=== PATIENT | female | born 1990 | race African-American/Black ===

== ENCOUNTER 2023-03-22 17:22 | Emergency (ER) | payer MEDICAID, OTHER ==
[~2023-03-22] VITALS: Ht 157.5 cm; Wt 113.0 kg
[2023-03-22] MEDS ORDERED: LIDOCAINE 1% (LOCAL ANESTH.) PF 5ml SDV ID ONE (19:15)
[2023-03-22 19:16] LABS: Urine Bacteria FEW /hpf (None Seen); Urine Blood TRACE /uL (Negative); Urine Clarity HAZY (Clear); Urine Color Yellow (Yellow); Urine Mucus FEW (None Seen); Urine Protein, UAD TRACE (Negative); Urine Specific Gravity 1.032 (1.001-1.035); Urine Urobilinogen Normal (Negative); Urine WBC 13 /hpf (0 - 5)
[2023-03-22 19:39] LABS: Barbiturate Scree,Urine NEGATIVE (NEGATIVE); Benzodiazephine Screen, Urine NEGATIVE (NEGATIVE); Cannabinoid Screen, Urine NEGATIVE (NEGATIVE); Cocaine Screen, Urine NEGATIVE (NEGATIVE)
[2023-03-22 19:42] LABS: Alcohol, Urine < 3.0 mg/dL (0-10); Amphetamine Screen, Urine NEGATIVE (NEGATIVE); Opiate Scree,Urine NEGATIVE (NEGATIVE); Phencyclidine Screen, Urine NEGATIVE (NEGATIVE)
[2023-03-22] MEDS ORDERED: LIDOCAINE 1% HCL (LOCAL ANESTH.) INJ 20ML MDV ONE (20:39)
[2023-03-22] MEDS ORDERED: NEOMYCIN-BACITRACIN-POLYM 15GM TOP OINT TOP ONE (21:15)
[2023-03-22 22:46] VITALS: BP 127/76; PULSE 70; RESP 17; TEMP 98.2; O2SAT 100
== END 2023-03-22 22:51 | disposition home or self-care (01) ==
LOC: ER 17:22
DX: S51.811A Laceration without foreign body of right forearm, initial encounter (principal); F32.9 Major depressive disorder, single episode, unspecified; Z79.899 Other long term (current) drug therapy; Z32.02 Encounter for pregnancy test, result negative; X78.8XXA Intentional self-harm by other sharp object, initial encounter; Y93.89 Activity, other specified; Y92.89 Other specified places as the place of occurrence of the external cause; Y99.8 Other external cause status
CPT/HCPCS: 12002; 36415; 80307; 80320; 81001; 81025; 99283; J2001

== ENCOUNTER 2023-12-15 10:41 | Emergency (ER) | payer MEDICAID ==
[~2023-12-15] VITALS: Ht 157.5 cm; Wt 103.4 kg
[~2023-12-15 10:41] MED LIST: AZIT500T66 PO; PRED20TA2 PO; PROM1SOL4 PO
[2023-12-15 12:06] VITALS: BP 141/93; PULSE 80; RESP 18; TEMP 98.6; O2SAT 100
== END 2023-12-15 12:09 | disposition home or self-care (01) ==
LOC: ER 10:41
DX: J06.9 Acute upper respiratory infection, unspecified (principal); R07.89 Other chest pain; Z79.2 Long term (current) use of antibiotics; Z79.899 Other long term (current) drug therapy
CPT/HCPCS: 71045

== ENCOUNTER 2024-05-22 04:17 | Emergency (ER) | payer MEDICAID ==
[~2024-05-22] VITALS: Ht 160 cm; Wt 82.0 kg
[2024-05-22] MEDS: IPRATROPIUM BROM 0.5 MG/2.5ML INH SOL NEB ONE (04:56)
[2024-05-22] MEDS: ALBUTEROL SULF 2.5 MG/0.5ML(0.5%) NEB SOLN NEB ONE (04:56)
[2024-05-22 05:03] VITALS: BP 144/97; PULSE 102; RESP 16; TEMP 98.1; O2SAT 99
[2024-05-22] MEDS: methylPREDNISolone SOD SUCC 125 MG/2 ML VL IM ONE (05:32)
[2024-05-22] MEDS ORDERED: BENZ100C97 PO (05:33)
[2024-05-22] MEDS ORDERED: FLUT250M2 INH (05:33)
[2024-05-22] MEDS: AZITHROMYCIN 250 MG TAB PO ONE (05:33)
[2024-05-22] MEDS ORDERED: ALBUAER3 IN (05:33)
[2024-05-22] MEDS ORDERED: AZIT500T66 PO (05:33)
[2024-05-22 05:58] LABS: COVID19 ANTIGEN SOFIA FIA NEGATIVE (NEGATIVE); Rapid Influenza A Negative (Negative); Rapid Influenza B Negative (Negative)
== END 2024-05-22 06:05 | disposition home or self-care (01) ==
LOC: ER 04:17 → EDBD 04:17 → ER 06:04
DX: J20.9 Acute bronchitis, unspecified (principal); Z20.822 Contact with and (suspected) exposure to COVID-19
CPT/HCPCS: 36415; 71046; 87426; 87804; 94640; 96372; 99284; J2919

== ENCOUNTER 2024-06-07 18:08 | Emergency (ER) | payer MEDICAID ==
[~2024-06-07] VITALS: Ht 157.5 cm; Wt 90.0 kg
[~2024-06-07 18:08] MED LIST changes: +ALBUAER3 IN; +BENZ100C97 PO
[2024-06-07 18:29] VITALS: RESP 18
[2024-06-07 19:37] LABS: Basophils # (auto) 0.1 10 ^3/uL (0-0.2); Eosinophils # (auto) 0 10 ^3/uL (0-0.8); Eosinophils % (auto) 0.1 % (0.0-7.0); Hematocrit 36.4 % (36.0-46.0); Hemoglobin 11.8 g/dL (12.2-16.2); Lymphocytes # (auto) 1.3 10 ^3/uL (0.4-5.4); Lymphocytes % (auto) 20.1 % (10.0-50.0); Mean Corpuscular Hemoglobin 25.6 pg (28.0-32.0); Mean Corpuscular Hgb Conc. 32.4 g/dL (32.0-36.0); Mean Corpuscular Volume 78.9 fL (80.0-100.0); Monocytes # (auto) 0.4 10 ^3/uL (0-1.3); Monocytes % (auto) 6.2 % (0.0-12.0); Neutrophils # (auto) 4.6 10 ^3/uL (1.6-8.6); Neutrophils % (auto) 72.6 % (37.0-80.0); Platelet Count (auto) 332 10^3/uL (140-450); Red Blood Cells 4.61 10^6/uL (4.0-5.20); Red Cell Distribution Width 15.9 % (11.8-14.3); White Blood Cell 6.3 10^3/uL (4.4-10.8)
[2024-06-07 19:47] LABS: Alanine Aminotransferase 21 U/L (7-40); Albumin 4.6 g/dL (3.2-4.8); Alkaline Phosphatase 80 U/L (46-116); Anion Gap 7 (5-15); Aspartate Aminotransferase 18 U/L (13-40); BUN/Creatinine Ratio 7.5 (10.0-20.0); Blood Urea Nitrogen 6 mg/dL (9-23); Calcium 9.2 mg/dL (8.7-10.4); Carbon Dioxide 27 mmol/L (20-31); Chloride 106 mmol/L (98-107); Glucose 90 mg/dL (74-106); Lipase 29 U/L (12-53); Potassium 3.7 mmol/L (3.5-5.1); Sodium 140 mmol/L (136-145)
[2024-06-07 19:48] LABS: Bilirubin, Total 0.5 mg/dL (0.2-1.0); Total Protein 7.8 g/dL (5.7-8.2)
[2024-06-07 20:17] LABS: Urine Bacteria None Seen /hpf (None Seen)
[2024-06-07 20:34] LABS: Urine Blood 2+ /uL (Negative); Urine Clarity Clear (Clear); Urine Color Light-Yellow (Yellow); Urine Mucus FEW (None Seen); Urine Protein, UAD TRACE (Negative); Urine Squamous Epithelial Cell FEW /hpf (<5); Urine Urobilinogen Normal (Negative); Urine WBC 2 /hpf (0 - 5)
[2024-06-07 20:41] LABS: Amphetamine Screen, Urine Neg (NEGATIVE); Barbiturate Scree,Urine Neg (NEGATIVE); Benzodiazephine Screen, Urine Neg (NEGATIVE); Cannabinoid Screen, Urine Neg (NEGATIVE); Cocaine Screen, Urine Neg (NEGATIVE); Opiate Scree,Urine Neg (NEGATIVE); Phencyclidine Screen, Urine Neg (NEGATIVE)
--- NOTE | 2024-06-07 21:34 | DVH ---
Exam: CT CT AB PEL WO CON-NO ORAL OR IV History: ABD PAIN Comparison Study: None TECHNIQUE: Multidetector CT of the abdomen and pelvis was performed from lung bases to pubic symphysi s. Imaging was performed without IV contrast. Axial, coronal, and sagittal multiplanar reformats were obtained from the axial data set by the technologist. RADIATION DOSE: DLP 1130.1 mGy.cm; CTDI vol 21.29 mGy. Findings: Lungs: The lung bases are clear. Heart: The visualized heart is unremarkable. No cardiomegaly or pericardial effusion. Liver: Unremarkable. Gallbladder: Unremarkable. Spleen: Unremarkable Pancreas: Unremarkable Adrenals: Unremarkable Kidneys: Unremarkable GI tract: Mild diffuse jejunal wall thickening. : Unremarkable. Vasculature: Unremarkable Lymphadenopathy: Absent Peritoneum: No ascites Musculoskeletal: Unremarkable Soft tissues: Unremarkable Impression: 1. No acute abdominopelvic abnormalities. 2. Mild diffuse jejunal wall thickening. Correlate for an infectious/inflammatory enteritis.
[2024-06-07] MEDS ORDERED: ONDA-155 PO (22:42)
--- NOTE | 2024-06-07 22:42 | ED.PDOC ---
GI ASSESSMENT HPI Comments 33-YEAR-OLD FEMALE COMPLAINING OF NAUSEA AND VOMITING WHICH STARTED LAST NIGHT AFTER DRINKING A BUBBLE. STATES NAUSEA AND VOMITING STARTED WITHIN 30 MINUTES TO AN HOUR AFTER DRINKING. STATES SHE HAS BEEN HAVING VOMITING THROUGHOUT THE NIGHT INTO TODAY. STATES SHE FELT LIKE SHE WAS VOMITING UP BLOOD. TODAY SHE WAS STILL FEELS THOUGH SHE WAS VOMITING BLOOD. NO NEW MEDICATIONS. NO PRIOR STOMACH ISSUES. PATIENT STATES SHE WAS ALSO HAD DIARRHEA TODAY. NOTHING MAKES IT BETTER, NOTHING MAKES IT WORSE Chief Complaint: Nausea/Vomiting Time Seen by MD: 18:22 Primary Care Provider: NONE Reviewed Notes: Nurses Notes Allergies: Coded Allergies: No Known Drug Allergy (Verified Allergy, Unknown, 03/22/23) Home Meds Active Scripts Benzonatate (Benzonatate) 100 Mg Cap, 1-2 CAP PO Q4HR PRN for 10 Days, #30 CAP Prov:ROLAND YODER 05/22/24 Albuterol Sulfate (VENTOLIN MDI) 90 Mcg Ih, 90 MCG IN QID for 30 Days, #1 INH Prov:ROLAND YODER 05/22/24 Azithromycin (Azithromycin) 500 Mg Tab, 1 TAB PO DAILY for 5 Days, #5 TAB Prov:ROLAND YODER 05/22/24 Promethazine-Dm (Promethazine Dm 6.25-15 mg/5Ml) 1 Shyla Shyla, 10 ML PO TID, #180 ML Prov:VOLODYMYR LUCERO 10/01/23 Prednisone (Prednisone) 20 Mg Tab, 60 MG PO BS, #15 MG Prov:VOLODYMYR LUCERO 10/01/23 Azithromycin (Azithromycin) 500 Mg Tab, 1 TAB PO DAILY, #5 TAB Prov:VOLODYMYR LUCERO 10/01/23 Discontinued Scripts Fluticasone-Salmeterol (Advair Diskus 250/50) 1 Puff Ih, 1 PUFF INH BID for 14 Days, #1 INHALER Prov:ROLAND YODER 05/22/24 Information Source: Patient Mode of Arrival: EMS Past Medical History PAST MEDICAL HISTORY: Denies Surgical History: Denies all surgeries FOSTER PARENT History: Denies all FOSTER PARENT Hx Family History Family History: Reviewed,noncontributory to illness Social History Smoker: Non-Smoker Alcohol: Occasionally Drugs: Denies Drug Use Lives In: Home Constitutional: denies: chills, diaphoresis, fatigue, fever, malaise, sweats, weakness, others EENTM: denies: blurred vision, double vision, ear bleeding, ear discharge, ear drainage, ear pain, ear ringing, eye pain, eye redness, hearing loss, mouth pain, mouth swelling, nasal discharge, nose bleeding, nose congestion, nose pain, photophobia, tearing, throat pain, throat swelling, voice changes, others Respiratory: denies: cough, hemoptysis, orthopnea, SOB at rest, shortness of breath, SOB with excertion, stridor, wheezing, others Cardiovascular: denies: chest pain, dizzy spells, diaphoresis, Dyspnea on exertion, edema, irregular heart beat, left arm pain, lightheadedness, palpitations, PND, syncope, others Gastrointestinal: reports: abdominal pain, diarrhea, nausea, vomiting; denies: abdomen distended, blood streaked bowels, constipated, dysphagia, difficulty swallowing, hematemesis, melena, poor appetite, poor fluid intake, rectal bleeding, others Genitourinary: denies: abnormal vagina bleeding, burning, dyspareunia, dysuria, flank pain, frequency, hematuria, incontinence, pain, , vagina discharge, urgency, others Neurological: denies: dizziness, fainting, headache, left sided numbness, left sided weakness, numbness, paresthesia, pre-existing deficit, right sided numbness, right sided weakness, seizure, speech problems, tingling, tremors, weakness, others Musculoskeletal: denies: back pain, gout, joint pain, joint swelling, muscle pain, muscle stiffness, neck pain, others Integumetry: denies: bruises, change in color, change in hair/nails, dryness, laceration, lesions, lumps, rash, wounds, others Physical Exam General Appearance: No Apparent Distress, Normal HEENT: Normal ENT Inspection, Pharynx Normal, TMs Normal Neck: Full Range of Motion, Non-Tender, Normal, Normal Inspection Respiratory: Chest Non-Tender, Lungs Clear, No Accessory Muscle Use, No Respiratory Distress, Normal Breath Sounds Cardiovascular: No Edema, No JVD, No Murmur, No Gallop, Normal Peripheral Pulses, Regular Rate/Rhythm Breast Exam: Deferred Gastrointestinal: Diffuse (DIFFUSE ABDOMINAL TENDERNESS), No Organomegaly, Non Tender, No Pulsatile Mass, Normal Bowel Sounds, Soft Genitalia: Deferred Pelvic: Deferred Rectal: Deferred Extremities: No calf tenderness, Normal capillary refill, Normal inspection, Normal range of motion, Non-tender, No pedal edema Musculoskeletal : Apperance: Normal Neurologic: Alert, cnc laser operator II-XII nml as Tested, No Motor Deficits, Normal Affect, Normal Mood, No Sensory Deficits Cerebellar Function: Normal Reflexes: Normal Skin: Dry, Normal Color, Warm Lymphatic: No Adenopathy Was a procedure done? Was a procedure done?: No GI differential Dx Differential Diagnosis: Bowel Obstruction, Cholangitis, Cholecystitis, Gastritis/PUD, Gastroenteritis, GI hemorrhage X-Ray, Labs, Meds, VS Vital Signs Date Time Temp Pulse Resp B/P (MAP) Pulse Ox O2 Delivery O2 Flow Rate FiO2 06/07/24 19:03 98.3 96 16 100/62 (75) 97 06/07/24 18:29 18 Room Air* 0 21 Lab Test 06/07/24 20:16 06/07/24 18:33 Range/Units Urine Color Light-yellow Yellow Urine Clarity Clear Clear Urine pH 7.0 5.0-9.0 Urine Specific [place] 1.020 1.001-1.035 Urine Protein Trace H Negative Urine Ketones 1+ H Negative Urine Blood 2+ H Negative /uL Urine Nitrite Negative Negative Urine Bilirubin Negative Negative Urine Urobilinogen Normal Negative mg/dL Urine Leukocyte Esterase Negative Negative /uL Urine RBC 4 0 - 4 /hpf Urine WBC 2 0 - 5 /hpf Urine Squamous Epithelial Cells Few <5 /hpf Urine Bacteria None seen None Seen /hpf Urine Mucus Few None Seen Urine Glucose Normal Normal mg/dL Urine Test Negative Negative Urine Opiates Screen Neg NEGATIVE Urine Fentanyl Screen Neg NEGATIVE Urine Barbiturates Screen Neg NEGATIVE Urine Phencyclidine Screen Neg NEGATIVE Urine Amphetamines Screen Neg NEGATIVE Urine Benzodiazepines Screen Neg NEGATIVE Urine Cocaine Screen Neg NEGATIVE Urine Cannabinoids Screen Neg NEGATIVE White Blood Count 6.3 4.4-10.8 10^3/uL Red Blood Count 4.61 4.0-5.20 10^6/uL Hemoglobin 11.8 L 12.2-16.2 g/dL Hematocrit 36.4 36.0-46.0 % Mean Corpuscular Volume 78.9 L 80.0-100.0 fL Mean Corpuscular Hemoglobin 25.6 L 28.0-32.0 pg Mean Corpuscular Hemoglobin Concent 32.4 32.0-36.0 g/dL Red Cell Distribution Width 15.9 H 11.8-14.3 % Platelet Count 332 140-450 10^3/uL Mean Platelet Volume 8.9 6.9-10.8 fL Neutrophils (%) (Auto) 72.6 37.0-80.0 % Lymphocytes (%) (Auto) 20.1 10.0-50.0 % Monocytes (%) (Auto) 6.2 0.0-12.0 % Eosinophils (%) (Auto) 0.1 0.0-7.0 % Basophils (%) (Auto) 1.0 0.0-2.0 % Neutrophils # (Auto) 4.6 1.6-8.6 10 ^3/uL Lymphocytes # (Auto) 1.3 0.4-5.4 10 ^3/uL Monocytes # (Auto) 0.4 0-1.3 10 ^3/uL Eosinophils # (Auto) 0 0-0.8 10 ^3/uL Basophils # (Auto) 0.1 0-0.2 10 ^3/uL Nucleated Red Blood Cells 0.0 % Sodium Level 140 136-145 mmol/L Potassium Level 3.7 3.5-5.1 mmol/L Chloride Level 106 98-107 mmol/L Carbon Dioxide Level 27 20-31 mmol/L Anion Gap 7 5-15 Blood Urea Nitrogen 6 L 9-23 mg/dL Creatinine 0.80 0.550-1.02 mg/dL Glomerular Filtration Rate Calc 100 >90 mL/min BUN/Creatinine Ratio 7.5 L 10.0-20.0 Serum Glucose 90 74-106 mg/dL Calcium Level 9.2 8.7-10.4 mg/dL Total Bilirubin 0.5 0.2-1.0 mg/dL Aspartate Amino Transferase (AST) 18 13-40 U/L Alanine Aminotransferase (ALT) 21 7-40 U/L Alkaline Phosphatase 80 46-116 U/L Total Protein 7.8 5.7-8.2 g/dL Albumin 4.6 3.2-4.8 g/dL Lipase 29 12-53 U/L X-Ray, Labs, Meds, VS Comment IMAGING: X-RAYS AND CT SCANS WERE REVIEWED AND INTERPRETED BY THIS PROVIDER, IMAGING SHOWS NO FRACTURES AND NO PATHOLOGICAL DISEASE. PENDING RADIOLOGY REVIEW. LABORATORY: LABS REVIEWED AND INTERPRETED BY THIS PROVIDER. NO SIGNIFICANT ABNORMALITIES NOTED. PATIENT HAS PRIOR MEDICAL VISITS REVIEWED. MED RECONCILIATION PERFORMED VITAL SIGNS REVIEWED Time of 1ST Reevaluation: 22:42 Reevaluation 1ST: Improved Patient Education/Counseling: Diagnosis, Treatment, Need For Follow Up (FOLLOW UP IN THE NEXT 24 HOURS IF SYMPTOMS WORSEN.) Family Education/Counseling: Diagnosis Departure 1 Departure Time of Disposition: 22:41 Impression: Primary Impression: Enteritis Disposition: HOME / SELF CARE / HOMELESS Condition: Fair e-Prescriptions Ondansetron HCl (Ondansetron) 4 Mg Tab 4 MG PO TID PRN, #20 TAB Prov: HIGINIO HORN 06/07/24 Discharged With: Self Critical Care Note Critical Care Time?: No Stability Stability form required: No Heart Score Heart Score: Heart Score Response (Comments) Value History N/A 0 EKG N/A 0 Age N/A 0 Risk Factors N/A 0 Troponin N/A 0 Total 0 HIGINIO HORN Jun 07, 2024 22:42
[2024-06-07] MEDS: ONDANSETRON ODT 4 MG TAB PO ONE (23:04)
[2024-06-07] MEDS: MAALOX PLUS or MAALOX 30 ML PO ONE (23:04)
[2024-06-07] MEDS: LIDOCAINE VISCOUS 2% 15ML UD MT ONE (23:04)
[2024-06-07 23:44] VITALS: BP 121/72; PULSE 81; RESP 16; TEMP 97.7; O2SAT 99
== END 2024-06-07 23:55 | disposition home or self-care (01) ==
LOC: EDUNIT# 18:08 → EDSEX 18:08 → EDBD 18:08 → ER 18:08
DX: K52.9 Noninfective gastroenteritis and colitis, unspecified (principal); R11.2 Nausea with vomiting, unspecified; Z79.899 Other long term (current) drug therapy
CPT/HCPCS: 36415; 74176; 80053; 80307; 81001; 81025; 83690; 85025; 99284; Q0162